=== PATIENT | female | born 1970 | race Caucasian/White ===

== ENCOUNTER 2024-12-03 13:46 | Emergency (ER) | payer SELFPAY ==
[~2024-12-03] VITALS: Ht 157.5 cm; Wt 90.7 kg
[2024-12-03 13:57] VITALS: PULSE 94; RESP 18; TEMP 98.2; O2SAT 98
[2024-12-03] MEDS: ALBUTEROL 90 MCG/ACT INHALER INH STA (14:19)
[2024-12-03] MEDS: PREDNISONE 20 MG TAB PO ONE (14:19)
[2024-12-03] MEDS ORDERED: PREDNISONE20 MG PO (14:27)
[2024-12-03] MEDS ORDERED: AZITHROMYCIN250 MG PO (14:27)
== END 2024-12-03 14:43 | disposition home or self-care (01) ==
LOC: ER 14:29
DX: R05.9 Cough, unspecified (principal); J40 Bronchitis, not specified as acute or chronic; F17.210 Nicotine dependence, cigarettes, uncomplicated
CPT/HCPCS: 99282; J7512